=== PATIENT | male | born 1960 | race Native Hawaiian/Other Pacific Islander ===

== ENCOUNTER 2018-01-14 09:48 | Outpatient (CLI) | payer BC ==
[~2018-01-14 09:48] MED LIST: ALLEGRA ALRG180 M1 OR; ALPR0.2566 PO; ASA LO-DOSE81 MG PO; CITALOPRAM10 MG PO; CRESTOR20 MG PO; FLONASE0.05 %; GLIP5TAB65 PO; GLUCOPHAGE1000 MG PO; LEVO500T PO; LISI10TA11; LISI10TA11 PO; METF100038 OR; PREVACID15 MG OR; QUINAPRIL10 MG OR; VICTOZA18 MG/3 ML SC
== END 2018-01-14 22:36 | disposition home or self-care (01) ==
LOC: RAD 09:48
DX: M79.672 Pain in left foot (principal)

== ENCOUNTER 2018-06-28 10:40 | Outpatient (CLI) | payer BC | END 2018-06-28 20:38 | disposition home or self-care (01) | LOC: RAD 10:40 | DX: M79.672 Pain in left foot (principal) ==

== ENCOUNTER 2019-02-05 12:01 | Outpatient (CLI) | payer OTHER | END 2019-02-05 23:25 | disposition home or self-care (01) | LOC: LAB 12:01 | DX: R80.8 Other proteinuria (principal) | CPT/HCPCS: 84156 ==

== ENCOUNTER 2019-08-05 13:20 | Outpatient (CLI) | payer OTHER | END 2019-08-05 17:00 | disposition home or self-care (01) | LOC: RAD 13:20 | DX: S92.351A Displaced fracture of fifth metatarsal bone, right foot, initial encounter for closed fracture (principal) ==

== ENCOUNTER 2019-08-29 10:58 | Outpatient (CLI) | payer OTHER | END 2019-08-29 19:39 | disposition home or self-care (01) | LOC: US 10:58 | DX: I73.9 Peripheral vascular disease, unspecified (principal) ==

== ENCOUNTER 2020-05-06 09:50 | Inpatient (IN) | payer OTHER ==
[~2020-05-06] VITALS: Ht 177.8 cm; Wt 109.5 kg
[2020-05-06 12:22] LABS: PLATELET COUNT 335 K/uL (142-355)
[2020-05-06 12:34] LABS: POTASSIUM 4.2 mmol/L (3.6-5.2); SODIUM 134 mmol/L (136-145)
[2020-05-06 12:58] VITALS: BP 160/87; TEMP 97.9; Ht 177.8 cm; Wt 109.5 kg
[2020-05-06] MEDS ORDERED: METF500T PO (14:37)
[2020-05-06] MEDS ORDERED: FURO20TA67 PO (14:38)
[2020-05-06] MEDS ORDERED: AMLODIPINE BESYLATE PO (14:38)
[2020-05-06] MEDS ORDERED: GABA300C2 PO ×2 (14:40→14:41)
[2020-05-06] MEDS ORDERED: KLOR-CON M2020 MEQ PO (14:40)
[2020-05-06] MEDS ORDERED: TAMS0.4C PO (14:42)
[2020-05-06] MEDS ORDERED: EQL OMEPRAZOLE20 MG PO (14:43)
[2020-05-06] MEDS ORDERED: ALLO100T22 PO (14:44)
[2020-05-06] MEDS ORDERED: SIMV20TA2 PO (14:44)
[2020-05-06] MEDS ORDERED: TRAMADOL HYDROC50 MG PO (14:45)
[2020-05-06] MEDS ORDERED: ALPR0.5T24 PO (14:47)
[2020-05-06] MEDS ORDERED: CELEXA20 MG PO (14:48)
[2020-05-06] MEDS ORDERED: LEVEMIR FL100 UNIT/M SC ×2 (14:51→15:36)
[2020-05-06] MEDS ORDERED: NOVOLOG100 UNIT/M SC ×2 (14:54→15:37)
[2020-05-06] MEDS ORDERED: METO-837 PO (14:56)
[2020-05-06 16:00] VITALS: BP 122/80; TEMP 98.2
[2020-05-06 20:00] VITALS: BP 159/79; TEMP 98.5
[2020-05-07] VITALS: BP 164/85; TEMP 98.8
[2020-05-07 04:00] VITALS: BP 147/74; TEMP 98.5
[2020-05-07 08:00] VITALS: BP 152/72; TEMP 98.7
[2020-05-07 12:00] VITALS: BP 147/73; TEMP 98.1
[2020-05-07 16:00] VITALS: BP 160/78; TEMP 98.7
[2020-05-07 20:00] VITALS: BP 165/83; TEMP 98.6
[2020-05-08] VITALS (7 sets, daily range): BP systolic 148–174; BP diastolic 71–90; TEMP 97.9–98.7
[2020-05-08 03:09] LABS: PLATELET COUNT 295 K/uL (142-355)
[2020-05-08 03:32] LABS: POTASSIUM 4.4 mmol/L (3.6-5.2)
[2020-05-09 03:47] VITALS: BP 156/82; TEMP 98.8
[2020-05-09 05:50] LABS: PLATELET COUNT 318 K/uL (142-355)
[2020-05-09 06:03] LABS: POTASSIUM 3.7 mmol/L (3.6-5.2)
[2020-05-09 08:00] VITALS: BP 162/85; TEMP 98.2
[2020-05-09 12:00] VITALS: BP 181/87; TEMP 98
== END 2020-05-09 16:00 | disposition home or self-care (01) | DRG 639 ==
LOC: MED/SURG 09:50
PROVIDERS: ADMIT Family Medicine
DX: E11.621 Type 2 diabetes mellitus with foot ulcer (principal); L03.032 Cellulitis of left toe; E11.42 Type 2 diabetes mellitus with diabetic polyneuropathy; E66.8 Other obesity; F32.89 Other specified depressive episodes; I10 Essential (primary) hypertension; L97.529 Non-pressure chronic ulcer of other part of left foot with unspecified severity; B96.5 Pseudomonas (aeruginosa) (mallei) (pseudomallei) as the cause of diseases classified elsewhere; E11.65 Type 2 diabetes mellitus with hyperglycemia
CPT/HCPCS: 36415; 80053; 80202; 81000; 82550; 83605; 83735; 84484; 85027; 87040; 87070; 87077; 87186; 87205; 93005; J1815; J2543; J3370

== ENCOUNTER 2020-12-17 16:57 | Outpatient (CLI) | payer OTHER ==
[~2020-12-17 16:57] MED LIST changes: +ALLO100T22 PO; +ALPR0.5T24 PO; +AMLODIPINE BESYLATE PO; +CELEXA20 MG PO; +EQL OMEPRAZOLE20 MG PO; +FURO20TA67 PO; +GABA300C2 PO; +KLOR-CON M2020 MEQ PO; +LEVEMIR FL100 UNIT/M SC; +METF500T PO; +METO-837 PO; +NOVOLOG100 UNIT/M SC; +SIMV20TA2 PO; +TAMS0.4C PO; +TRAMADOL HYDROC50 MG PO
== END 2020-12-17 22:22 | disposition home or self-care (01) ==
LOC: RAD 16:57 → LAB 16:57
PROVIDERS: ATTEND Nurse Practitioner Family
DX: M86.8X7 Other osteomyelitis, ankle and foot (principal)
CPT/HCPCS: 87070; 87205

== ENCOUNTER 2020-12-20 10:39 | Outpatient (CLI) | payer OTHER ==
[2020-12-20 10:54] LABS: PLATELET COUNT 316 K/uL (142-355)
[2020-12-20 11:20] LABS: POTASSIUM 5.1 mmol/L (3.6-5.2)
== END 2020-12-20 20:59 | disposition home or self-care (01) ==
LOC: LAB 10:39
PROVIDERS: ATTEND Nurse Practitioner Family
DX: M86.8X7 Other osteomyelitis, ankle and foot (principal)
CPT/HCPCS: 80048; 85027; 85652; 86140

== ENCOUNTER 2020-12-27 17:11 | Outpatient (CLI) | payer OTHER ==
[2020-12-27 17:36] LABS: PLATELET COUNT 277 K/uL (142-355)
[2020-12-27 17:44] LABS: POTASSIUM 4.3 mmol/L (3.6-5.2)
== END 2020-12-27 19:08 | disposition home or self-care (01) ==
LOC: LAB 17:11
PROVIDERS: ATTEND Nurse Practitioner Family
DX: M86.8X7 Other osteomyelitis, ankle and foot (principal)
CPT/HCPCS: 80048; 85027; 86140

== ENCOUNTER 2020-12-29 10:21 | Outpatient (CLI) | payer OTHER | END 2020-12-29 20:53 | disposition home or self-care (01) | LOC: LAB 10:21 | PROVIDERS: ATTEND Family Medicine | DX: M86.171 Other acute osteomyelitis, right ankle and foot (principal); Z79.899 Other long term (current) drug therapy | CPT/HCPCS: 85652 ==

== ENCOUNTER 2021-01-03 14:00 | Outpatient (CLI) | payer OTHER ==
[2021-01-03 14:07] LABS: PLATELET COUNT 298 K/uL (142-355)
[2021-01-03 14:24] LABS: POTASSIUM 4.7 mmol/L (3.6-5.2)
== END 2021-01-03 21:50 | disposition home or self-care (01) ==
LOC: LAB 14:00
PROVIDERS: ATTEND Family Medicine
DX: E11.69 Type 2 diabetes mellitus with other specified complication (principal); M86.171 Other acute osteomyelitis, right ankle and foot; Z45.2 Encounter for adjustment and management of vascular access device
CPT/HCPCS: 80048; 85027; 85652; 86140

== ENCOUNTER 2022-06-15 09:04 | Outpatient (CLI) | payer BC | END 2022-06-15 18:56 | disposition home or self-care (01) | LOC: RAD 09:04 | PROVIDERS: ATTEND Emergency Medicine Undersea and Hyperbaric Medicine | DX: S91.301A Unspecified open wound, right foot, initial encounter (principal); Y92.89 Other specified places as the place of occurrence of the external cause ==